=== PATIENT | female | born 1995 | race Caucasian/White ===

== ENCOUNTER 2016-11-18 21:57 | Outpatient (CLI) | payer OTHER ==
[~2016-11-18] VITALS: Ht 188 cm; Wt 127.0 kg
--- NOTE | ~2016-11-18 | HP ---
PATIENT'S NAME: ANDREW MG [facility] AGE: 20 Y [address] ROOM: [place] [id number] LOCATION: [facility] ADMIT DATE: 11/18/2016 History & Physical DISCHARGE DATE: FAMILY PHYSICIAN: Sharyn Arguello MD ATTENDING PHYSICIAN: Sharyn Arguello DATE OF SERVICE: OUTPATIENT NOTE SUBJECTIVE: 20 year old 1 female who presents with questionable leakage of fluid. She said she has had occasional contractions. She has had no vaginal bleeding, and she has had normal movement. OBJECTIVE: VITAL SIGNS: Stable. She is afebrile. She appears completely comfortable. STERILE SPECULUM: No pooling. Nitrazine negative. Large amount of mucus present. Cervix is 2 cm thick and high. TOCO shows no contractions, moderate variability and accelerations. ASSESSMENT: 1. Intrauterine at 39 weeks and 6 days. 2. Rule out rupture of membranes. 3. No evidence of rupture. PLAN: Followup as scheduled. The patient is already scheduled for an induction. MD PRIMITIVO IVORY/kwame /[id number] D: [id number] T: [id number] HISTORY & PHYSICAL
[2016-11-18] MEDS ORDERED: PRENATAL 1+1)(P1 TAB PO (22:31)
== END 2016-11-18 23:40 | disposition disaster alternative care site (69) ==
LOC: GOBS 21:57 → GOBM 21:57 → GOBS 23:00 → GOBM 23:40
DX: Z03.71 Encounter for suspected problem with amniotic cavity and membrane ruled out (principal)
CPT/HCPCS: G0463

== ENCOUNTER 2016-11-19 17:46 | Inpatient (IN) | payer OTHER ==
[~2016-11-19] VITALS: Ht 188 cm; Wt 125.6 kg
[~2016-11-19 17:46] MED LIST: PRENATAL 1+1)(P1 TAB PO
[2016-11-20] MEDS ORDERED: ACETAMINOPHEN500 MG PO (08:15)
== END 2016-11-19 20:15 | disposition disaster alternative care site (69) | DRG 780 ==
LOC: GOBS 17:46
PROVIDERS: ADMIT Obstetrics & Gynecology
DX: O47.1 False labor at or after 37 completed weeks of gestation (principal)
CPT/HCPCS: G0463

== ENCOUNTER 2016-11-20 07:07 | Inpatient (IN) | payer OTHER ==
[~2016-11-20] VITALS: Ht 188 cm; Wt 124.5 kg
--- NOTE | ~2016-11-20 | OR ---
PATIENT'S NAME: ANDREW MG [facility] AGE: 20 Y [address] ROOM: [place] [address] LOCATION: [facility] ADMIT DATE: 11/20/2016 OR/Procedure Report DISCHARGE DATE: FAMILY PHYSICIAN: PHYSICIAN, NO ATTENDING PHYSICIAN: DHEERAJ HAYWARD SURGEON: Dheeraj Hayward MD HOUSEHOLD APPLIANCES SERVICE TECHNICIAN: DATE OF PROCEDURE: 11/21/2016 PREOPERATIVE DIAGNOSIS: Intrauterine at 40 weeks 2 days. POSTOPERATIVE DIAGNOSIS: Intrauterine at 40 weeks 2 days. PROCEDURE PERFORMED: Spontaneous vaginal delivery over an intact perineum. ANESTHESIA: Epidural. FINDINGS: A viable male infant with scores of 8 and 9 and weight of 8 pounds and 11 ounces. Placenta intact with three-vessel cord. First-degree perineal laceration. Bilateral periurethral lacerations. ESTIMATED BLOOD LOSS: 300 mL. COMPLICATIONS: None. INDICATIONS: The patient is a 20-year-old G2, P0-0-1-0 who presented with IUP at 40 weeks and 1 day for elective induction of labor. She was found to be 2, 40, and -3. She had Pitocin started. She then had artificial rupture of membranes of clear fluid at 3 cm. She progressed to complete and started maternal expulsive efforts. DESCRIPTION OF PROCEDURE: The patient was placed in dorsal lithotomy with maternal expulsive efforts. head was delivered in the FABIANO position. The anterior shoulder was then delivered followed by the remainder of the fetus. The was placed on the mother's abdomen. The cord was clamped and cut after it stopped pulsating. Cord blood was obtained. The placenta then delivered spontaneously intact with 3-vessel cord. The first-grade perineal laceration was then repaired in the usual fashion with 3-0 Vicryl. Bilateral periurethral lacerations were noted and these were both repaired with 4-0 Vicryl in a running fashion. Instruments, sponge, and needle counts were correct at the conclusion of the case. PATIENT'S NAME: ANDREW MG [facility] AGE: 20 Y [address] ROOM: [place] [id number] LOCATION: [facility] ADMIT DATE: 11/20/2016 OR/Procedure Report DISCHARGE DATE: FAMILY PHYSICIAN: MONICA ROWE ATTENDING PHYSICIAN: DHEERAJ HAYWARD MD JL/kwame /[id number] d: 11/21/16 0138 t: 12/05/16 1341, OPERATIVE SUMMARY
[2016-11-20] MEDS ORDERED: ACETAMINOPHEN500 MG PO (08:15)
[2016-11-20 08:25] LABS: BASOPHIL % 0.2 %; EOSINOPHIL % 0.1 %; HEMATOCRIT 40.1 % (33.0-46.0); HEMOGLOBIN 13.5 g/dL (11.0-15.0); IMMATURE GRANULOCYTE # 0.4 K/uL (0.0-0.3); IMMATURE GRANULOCYTE % 1.7 %; LYMPHOCYTE # 2.1 K/uL (0.8-4.0); MCH 29.5 pg (27.0-34.0); MCHC 33.7 gm/dL (32.0-36.5); MCV 87.7 fl (83.0-98.0); MONOCYTE % 4.8 %; MPV 12.6 fl (9.4-12.4); NEUTROPHIL # (ANC) 17.8 K/uL (1.8-7.8); NEUTROPHIL % 83.2 %; NRBC % 0 /100WBC (0-0.00); PLATELET COUNT 216 K/uL (150-450); RBC 4.57 M/uL (3.50-5.00); RDW-CV 14.9 % (11.9-14.6)
[2016-11-20 08:30] LABS: WBC 21.5 K/uL (4.0-11.0)
--- NOTE | 2016-11-20 17:55 | NUR ---
CX 5-6CMS AT 1730. PITOCIN AT 15MU W/ 750MLS UP. LR W/ 500MLS UP PERALES IN. AND MOTHER AT BS
--- NOTE | 2016-11-21 04:54 | NUR ---
VSS, fundus firm, lochia small, has not voided yet. Showered, and tidy done. nothing for pain yet.
--- NOTE | 2016-11-21 12:35 | NUR ---
Introduced self/role to patient and her Calos. They live in [place]. They stated they have all their baby supplies they need. Reminded them to call insurance to get baby added. Gave them resources in their area and on post- depression. She plans to breast feed but interested in WIC. Given that info. She has no family doctor, encouraged her to find one. Denied any barriers or needs. Planning to go home tomorrow.
--- NOTE | 2016-11-21 16:45 | NUR ---
Significant Event: Follow up: VSS, Hbg & fetalscreen ordered for am. SL dc'd per patiet request. Voiding well & denies clots, fundus firm & 1Fbelow. Pulse 114, 87, 96. Medicated with percocet 1) @ 1618., may want a jacuzzi tonight before bedtime. Hx of HPV & Clamidia.
[2016-11-22 04:11] LABS: BASOPHIL % 0.3 %; EOSINOPHIL # 0.3 K/uL (0.0-0.5); HEMATOCRIT 38.1 % (33.0-46.0); HEMOGLOBIN 12.7 g/dL (11.0-15.0); IMMATURE GRANULOCYTE # 0.3 K/uL (0.0-0.3); LYMPHOCYTE # 2.3 K/uL (0.8-4.0); LYMPHOCYTE % 15.8 %; MCHC 33.3 gm/dL (32.0-36.5); MCV 89.9 fl (83.0-98.0); MONOCYTE # 0.9 K/uL (0.0-1.0); MONOCYTE % 6.6 %; MPV 11.9 fl (9.4-12.4); NEUTROPHIL # (ANC) 10.5 K/uL (1.8-7.8); NEUTROPHIL % 73.3 %; NRBC % 0 /100WBC (0-0.00); PLATELET COUNT 187 K/uL (150-450); RBC 4.24 M/uL (3.50-5.00); RDW-CV 15.2 % (11.9-14.6); WBC 14.3 K/uL (4.0-11.0)
--- NOTE | 2016-11-22 05:16 | NUR ---
VSS. Pain rating 4. Last had Motrin at 0445. Fundus firm and midline. Small flow. Nipples tender/intact. Has Lanolin, APNO, and soothies. Ambulated in halls multiple times tonight. Voiding well. Has Aqua K pad for back discomfort. Would like to go home tomorrow.
--- NOTE | 2016-11-22 17:20 | NUR ---
Last VS: T:98.5 P:97 R: 16 BP: 117/74 Pain ratin . Last pain med: Motrin Medicated at:1700 Effective: Breasts:soft , Nipples: tender/intact Fundus:ff Lochia: small-moderate Epis/Perineum:tender Voiding well: yes Significant event: sleeping on cot all day. Both need to watch video's. Video's @ bedside. Rhogam given this afternoon. Had Adrianna this am. Infant better w/o shield this afternoon. VSS.
--- NOTE | 2016-11-23 04:57 | NUR ---
vss, 1 percocet given at 0214. home today.
[2016-11-23] MEDS ORDERED: APNO TOP (09:26)
[2016-11-23] MEDS ORDERED: MOTRIN800 MG PO (09:26)
[2016-11-23] MEDS ORDERED: PERCOCET 5-3251 EACH PO (09:27)
== END 2016-11-23 12:55 | disposition disaster alternative care site (69) | DRG 775 ==
LOC: GOBM 07:07 → GOBS 07:07 → GOBM 07:08 → GOBS 14:51
PROVIDERS: ADMIT Obstetrics & Gynecology
PROC: 10E0XZZ Delivery of Products of Conception, External Approach (ICD-10-PCS; principal; 2016-11-21)
PROC: 0UQMXZZ Repair Vulva, External Approach (ICD-10-PCS; 2016-11-21)
PROC: 0HQ9XZZ Repair Perineum Skin, External Approach (ICD-10-PCS; 2016-11-21)
DX: O70.0 First degree perineal laceration during delivery (principal); O71.82 Other specified trauma to perineum and vulva; Z3A.40 40 weeks gestation of pregnancy; Z37.0 Single live birth
CPT/HCPCS: J2001; J2590; J2791; J3010; J7120